=== PATIENT | female | born 1960 | race Caucasian/White ===

== ENCOUNTER 2018-01-23 05:48 | Emergency (ER) | payer BC ==
[~2018-01-23] VITALS: Ht 157.5 cm; Wt 61.4 kg
[~2018-01-23 05:48] MED LIST: BETASERON0.3 M2; BETASERON0.3 MG SC; PERCOCET 325 MG1 TA2 PO; TRAMADOL50 MG PO; XARELTO STARTER20 MG PO; XARELTO20 MG PO
[2018-01-23 05:49] VITALS: TEMP 97.3
[2018-01-23] MEDS ORDERED: ASPIRIN 81M81 MG/TA2 PO (05:52)
[2018-01-23 06:43] LABS: BASO % 0.3 % (0.0-2.0); EOS % 0.2 % (0-4.0); GRAN # 10.2 (1.4-6.5); GRAN % 86.6 % (42.2-75.2); HEMATOCRIT 41.8 % (37.0-47.0); HEMOGLOBIN 14.1 g/dl (12.5-16.0); LYMPH # 0.8 (1.2-3.4); LYMPH % 6.8 % (20.0-51.0); MEAN CELL VOLUME 92 fl (80.0-100.0); MEAN CORPUSCULAR HEMOGLOBIN 31 pg (27.0-31.0); MEAN CORPUSCULAR HGB CONC 34 g/dl (33.0-37.0); MEAN PLATELET VOLUME 9.3 fl (7.4-10.4); MONO # 0.7 (0.1-0.6); MONO % 5.7 % (1.7-9.3); PLATELET COUNT 252 K/mm3 (130-400); RED BLOOD COUNT 4.56 M/mm3 (4.10-5.30)
[2018-01-23 07:02] LABS: BILIRUBIN,TOTAL 0.7 mg/dL (0.0-1.0); CALCIUM 9.1 mg/dL (8.4-10.2); CREATININE, serum 0.74 mg/dL (0.52-1.25); POTASSIUM 4.2 mmol/L (3.4-5.0); TOTAL PROTEIN 7.4 gm/dL (6.4-8.2)
[2018-01-23] MEDS ORDERED: MEDROL 4MG DOSPA4 MG PO (07:13)
[2018-01-23] MEDS ORDERED: NORCO 325 MG-51 TAB PO (07:13)
[2018-01-23 07:31] VITALS: BP 147/76; PULSE 76
[2018-01-23 07:39] LABS: C-REACTIVE PROTEIN 0.9 mg/dL (0.0-0.9)
== END 2018-01-23 07:32 | disposition home or self-care (01) ==
LOC: COL.ER 05:48
PROVIDERS: Family Medicine
DX: M50.30 Other cervical disc degeneration, unspecified cervical region (principal); M46.82 Other specified inflammatory spondylopathies, cervical region; Z79.82 Long term (current) use of aspirin
CPT/HCPCS: J1170; J2405; J7030

== ENCOUNTER → 2018-01-31 | Outpatient (CLI) | payer BC ==
[~2018-01-31] MED LIST changes: +ASPIRIN 81M81 MG/TA2 PO; +MEDROL 4MG DOSPA4 MG PO; +NORCO 325 MG-51 TAB PO
== END ==
LOC: COL.RAD 01-24 10:30
DX: G93.9 Disorder of brain, unspecified (principal)
CPT/HCPCS: A9585

== ENCOUNTER → 2018-02-02 | Outpatient (CLI) | payer BC | LOC: MHCPAIN 09:53 | DX: G89.29 Other chronic pain (principal); M47.812 Spondylosis without myelopathy or radiculopathy, cervical region; R51 Headache | CPT/HCPCS: G0463 ==

== ENCOUNTER 2018-03-16 11:00 | Outpatient (RCR) | payer BC | END 2018-03-28 15:45 | disposition home or self-care (01) | LOC: WSPT 11:00 | DX: M50.30 Other cervical disc degeneration, unspecified cervical region (principal) ==

== ENCOUNTER → 2018-03-29 | Outpatient (CLI) | payer BC | LOC: MC.RAD 10:34 | DX: Z12.31 Encounter for screening mammogram for malignant neoplasm of breast (principal) ==

== ENCOUNTER → 2018-04-04 | Outpatient (CLI) | payer BC | LOC: MHCPAIN 10:50 | DX: G89.29 Other chronic pain (principal); M50.90 Cervical disc disorder, unspecified, unspecified cervical region; R51 Headache | CPT/HCPCS: G0463 ==

== ENCOUNTER 2018-08-01 03:39 | Emergency (ER) | payer BC ==
[~2018-08-01] VITALS: Ht 157.5 cm; Wt 63.6 kg
[2018-08-01 03:41] VITALS: TEMP 99.7
[2018-08-01 04:14] LABS: BASO % 0.2 % (0.0-2.0); EOS % 0.2 % (0-4.0); GRAN # 9.5 (1.4-6.5); GRAN % 78.7 % (42.2-75.2); HEMATOCRIT 42.5 % (37.0-47.0); HEMOGLOBIN 14.5 g/dl (12.5-16.0); LYMPH # 1.7 (1.2-3.4); LYMPH % 14.1 % (20.0-51.0); MEAN CELL VOLUME 90 fl (80.0-100.0); MEAN CORPUSCULAR HEMOGLOBIN 31 pg (27.0-31.0); MEAN CORPUSCULAR HGB CONC 34 g/dl (33.0-37.0); MONO # 0.8 (0.1-0.6); MONO % 6.5 % (1.7-9.3); PLATELET COUNT 262 K/mm3 (130-400); RED BLOOD COUNT 4.71 M/mm3 (4.10-5.30); REDCELL DISTRIBUTION WIDTH-CV 11.9 % (11.5-14.5)
[2018-08-01 04:27] LABS: ALBUMIN 3.9 gm/dL (3.5-5.0); BILIRUBIN,TOTAL 0.7 mg/dL (0.0-1.0); CALCIUM 9.1 mg/dL (8.4-10.2); CREATININE, serum 0.71 mg/dL (0.52-1.25); MAGNESIUM 1.7 mg/dL (1.6-2.3); TOTAL PROTEIN 6.9 gm/dL (6.4-8.2)
[2018-08-01] MEDS ORDERED: ATIVAN 0.50.5 MG/TAB PO (05:48)
[2018-08-01] MEDS ORDERED: FLAGYL500 MG PO (05:48)
[2018-08-01] MEDS ORDERED: CIPRO 500MG TA500 MG PO (05:48)
[2018-08-01 09:12] VITALS: BP 115/77; PULSE 92
== END 2018-08-01 09:20 | disposition home or self-care (01) ==
LOC: COL.ER 03:39
PROVIDERS: Emergency Medicine
DX: K52.9 Noninfective gastroenteritis and colitis, unspecified (principal)
CPT/HCPCS: J1200; J2060; J2405; J7030; Q9967

== ENCOUNTER → 2019-01-15 | Outpatient (CLI) | payer BC ==
[~2019-01-15] MED LIST changes: +ATIVAN 0.50.5 MG/TAB PO; +CIPRO 500MG TA500 MG PO; +FLAGYL500 MG PO
== END ==
LOC: COL.RAD 13:47
DX: G35 Multiple sclerosis (principal)

== ENCOUNTER 2019-02-17 02:48 | Emergency (ER) | payer BC ==
[~2019-02-17] VITALS: Ht 160 cm; Wt 59.1 kg
[2019-02-17 02:56] VITALS: BP 178/80; TEMP 97.9
[2019-02-17 03:49] LABS: BASO % 0.5 % (0.0-2.0); EOS # 0.1 (0.0-0.7); EOS % 1.9 % (0-4.0); GRAN # 5.1 (1.4-6.5); GRAN % 68.2 % (42.2-75.2); HEMATOCRIT 41.9 % (37.0-47.0); HEMOGLOBIN 14.1 g/dl (12.5-16.0); LYMPH # 1.6 (1.2-3.4); LYMPH % 21.8 % (20.0-51.0); MEAN CELL VOLUME 91 fl (80.0-100.0); MEAN CORPUSCULAR HEMOGLOBIN 31 pg (27.0-31.0); MEAN CORPUSCULAR HGB CONC 34 g/dl (33.0-37.0); MEAN PLATELET VOLUME 9.5 fl (7.4-10.4); MONO # 0.6 (0.1-0.6); MONO % 7.5 % (1.7-9.3); PLATELET COUNT 248 K/mm3 (130-400); RED BLOOD COUNT 4.63 M/mm3 (4.10-5.30); REDCELL DISTRIBUTION WIDTH-CV 12.4 % (11.5-14.5)
[2019-02-17 03:58] LABS: BILIRUBIN,TOTAL 0.4 mg/dL (0.0-1.0); CALCIUM 9.3 mg/dL (8.4-10.2); CREATININE, serum 0.7 (0.52-1.25); MAGNESIUM 2.1 mg/dL (1.6-2.3); PHOSPHOROUS 3.7 mg/dL (2.5-4.5); POTASSIUM 3.7 mmol/L (3.4-5.0); TOTAL PROTEIN 7.1 gm/dL (6.4-8.2)
[2019-02-17 04:27] LABS: THYROID STIMULATING HORMONE 3.27 uIU/mL (0.465-4.680)
[2019-02-17 04:50] VITALS: PULSE 76
== END 2019-02-17 04:50 | disposition home or self-care (01) ==
LOC: COL.ER 02:48
PROVIDERS: Emergency Medicine
DX: G35 Multiple sclerosis (principal); F41.9 Anxiety disorder, unspecified; G89.29 Other chronic pain; Z79.891 Long term (current) use of opiate analgesic
CPT/HCPCS: J1170; J2060; J7030

== ENCOUNTER → 2020-01-02 | Outpatient (CLI) | payer BC | LOC: MC.RAD 01-01 10:30 | DX: Z12.31 Encounter for screening mammogram for malignant neoplasm of breast (principal) ==

== ENCOUNTER 2020-11-26 10:30 | Outpatient (RCR) | payer BC | END 2021-01-08 10:09 | disposition still patient (30) | LOC: WSPT 10:30 | DX: G35 Multiple sclerosis (principal) ==

== ENCOUNTER → 2021-02-03 | Outpatient (CLI) | payer BC | LOC: MC.RAD 15:23 | DX: Z12.31 Encounter for screening mammogram for malignant neoplasm of breast (principal) ==

== ENCOUNTER → 2022-02-04 | Outpatient (CLI) | payer BC | LOC: MC.RAD 11:17 | DX: Z12.31 Encounter for screening mammogram for malignant neoplasm of breast (principal) ==